=== PATIENT | female | born 1945 | race Caucasian/White ===

== ENCOUNTER 2016-06-07 19:35 | Emergency (ER) | payer MEDICARE, OTHER, BC ==
[~2016-06-07 19:35] MED LIST: AMITRYPTYLINE PO; ATENOLOL PO; BENADRYL25 M1 PO; CLARITIN10 M3 PO; CRESTOR PO; CRESTOR10 MG PO; FLOXIN10 ML AS; KEFLEX500 M1 PO; KEFLEX500 M2 PO; LANTUS INSULIN SQ; LEVAQUIN PO; LEVOFLOXACIN500 MG PO; MEDROL DOSEPAK4 MG DOB; MEDROL DOSEPAK4 MG PO; MEDROL4 MG/DOSE- PO; PHENERGAN25 MG PO; PREVACID PO; XANAX0.5 MG PO; ZESTRIL5 MG PO; ZYRTEC10 M1 PO
== END 2016-06-07 19:43 | disposition home or self-care (01) ==
LOC: SED 19:35
DX: M25.462 Effusion, left knee (principal); E11.9 Type 2 diabetes mellitus without complications; I10 Essential (primary) hypertension; M06.9 Rheumatoid arthritis, unspecified; Z88.0 Allergy status to penicillin; Z88.2 Allergy status to sulfonamides; Z88.8 Allergy status to other drugs, medicaments and biological substances; Z88.1 Allergy status to other antibiotic agents; Z79.899 Other long term (current) drug therapy
CPT/HCPCS: 99282